=== PATIENT | male | born 1990 | race Caucasian/White ===

== ENCOUNTER 2018-06-05 13:42 | Day surgery (SDC) | payer OTHER ==
[2018-06-05 15:00] LABS: ADD MAN DIFF? NO
[2018-06-05 15:01] LABS: WHITE BLOOD COUNT 12.1 10^3/ul (4.8-10.8)
[2018-06-05 15:01] LABS: BASOPHILS % 0.2 % (0.0-2.0); EOSINOPHILS % 0.3 % (0.0-7.0); HEMATOCRIT 41.3 % (42.0-52.0); HEMOGLOBIN 14.2 g/dl (14.0-18.0); LYMPHOCYTES # 1.9 10^3/ul (0.8-2.9); LYMPHOCYTES % 15.9 % (15.0-51.0); MEAN CORPUSCULAR HEMOGLOBIN 31.6 pg (29.0-33.0); MEAN CORPUSCULAR HGB CONC 34.4 g/dl (32.0-37.0); MEAN CORPUSCULAR VOLUME 91.8 fl (82.0-101.0); MEAN PLATELET VOLUME 10.7 fl (7.4-10.4); MONOCYTE # 0.5 10^3/ul (0.3-0.9); MONOCYTES % 4.4 % (0.0-11.0); NEUTROPHIL # 9.6 10^3/ul (1.6-7.5); NEUTROPHILS % 78.8 % (39.0-77.0); PLATELET COUNT 218 10^3/UL (140-415); RED CELL DISTRIBUTION WIDTH 12.8 % (11.5-14.5)
[2018-06-05 15:07] LABS: ADD UMIC NO; UR ASCORBIC ACID NEGATIVE (NEGATIVE); UR BILIRUBIN (Dip) NEGATIVE (NEGATIVE); UR BLOOD (Dip) NEGATIVE (NEGATIVE); UR CLARITY CLEAR (CLEAR); UR COLOR YELLOW (YELLOW); UR GLUCOSE (Dip) NEGATIVE (NEGATIVE); UR KETONES (Dip) NEGATIVE (NEGATIVE); UR LEUKOCYTE ESTERASE (Dip) NEGATIVE Leu/ul (NEGATIVE); UR NITRITE (Dip) NEGATIVE (NEGATIVE); UR SPECIFIC GRAVITY (Dip) 1.019 (1.003-1.030); UR TOTAL PROTEIN (Dip) NEGATIVE (NEGATIVE); UR UROBILINOGEN (Dip) NEGATIVE (NEGATIVE)
[2018-06-05 15:14] LABS: HOLD TRANSMISSIONS 1
[2018-06-05] MEDS ORDERED: MIDAZOLAM 1 MG/ML 2 ML INJ (17:44)
[2018-06-05] MEDS ORDERED: ROPIVACAINE 0.5 % 30 ML VIAL (17:45)
[2018-06-05] MEDS ORDERED: POLYMYXIN/BACITRACIN 1L IRRIG (17:51)
[2018-06-05] MEDS ORDERED: PROPOFOL 20 ML (18:30)
[2018-06-05] MEDS ORDERED: SUGAMMADEX SODIUM 200 MG/2 ML VIAL IV (18:30)
[2018-06-05] MEDS ORDERED: CEFAZOLIN 1 GM INJ (18:30)
[2018-06-05] MEDS ORDERED: LIDOCAINE 100 MG SYRINGE (18:30)
[2018-06-05] MEDS ORDERED: ROCURONIUM 50 MG INJ (18:30)
[2018-06-05] MEDS ORDERED: SUCCINYLCHOLINE CHLORIDE 100 MG/5 ML SYG IV (18:30)
[2018-06-05] MEDS ORDERED: DIPHENHYDRAMINE 50 MG INJ IV (19:30)
[2018-06-05] MEDS ORDERED: FENTAnyl 50 MCG/ML VIAL IV ×3 (19:30)
[2018-06-05] MEDS ORDERED: ONDANSETRON 4 MG INJ IV (19:30)
[2018-06-05] MEDS ORDERED: METOCLOPRAMIDE 10 MG INJ IV (19:30)
[2018-06-05] MEDS ORDERED: HYDROmorphONE 1 MG/5 ML IV SYRINGE IV ×3 (19:30)
[2018-06-05] MEDS ORDERED: MEPERIDINE 25 MG INJ IV (19:30)
[2018-06-05] MEDS: LIDOCAINE 1%/EPI 30 ML INJ (19:52)
[2018-06-05] MEDS: BUPIVACAINE 0.5%/EPI (SDV) 30 ML INJ (19:52)
== END 2018-06-05 21:19 | disposition home or self-care (01) ==
LOC: SDS 13:42
DX: S52.501A Unspecified fracture of the lower end of right radius, initial encounter for closed fracture (principal)
CPT/HCPCS: 25609; 73110-RT; 81003; 85025